=== PATIENT | male | born 1970 | race Caucasian/White ===

== ENCOUNTER 2020-05-01 17:03 | Emergency (ER) | payer OTHER ==
--- OUTSIDE RECORDS SUMMARY | 2020-05-01 17:04 | XMS REPORT | Continuity of Care Document ---
:1970 Author Organization [facility] t Address [address] [place] [address] Dr. Guzman [address] [place] [id number] Care Team Providers Name Role Phone Unavailable Unavailable Unavailable Problems This patient has no known problems. Allergies, Adverse Reactions, Alerts This patient has no known allergies or adverse reactions. Medications This patient has no known medications. Procedures This patient has no known procedures. Results This patient has no known results.
[2020-05-01] MEDS ORDERED: IBUPROFEN 200 MG TAB PO ONE (18:18)
[2020-05-01] MEDS ORDERED: IBUPROFEN 400 MG TAB ONE (18:19)
--- NOTE | 2020-05-01 18:28 | ER ---
Nurse's Notes [facility] Name: North Nguyen Age: 49 yrs Sex: Male : 1970 Arrival Date: 05/01/2020 Time: 17:04 Bed 16 Private MD: Diagnosis: Pain in right shoulder Presentation: 05/01 17:22 Chief complaint: Parent and/or Guardian states: Pt was walking, tripped and fell onto a ks7 brick wall with uneven surface. c/o R shoulder pain, unable to lift arm up. NO LOC, denies dizziness. Care prior to arrival: None. Mechanism of Injury: Fall tripped and fell onto a brick wall. Trauma event details: Injury occurred: at home. 17:22 Acuity: DIMPLE 4 ks7 17:22 Method Of Arrival: Ambulatory ks7 Trauma Activation: Not Applicable Physician: ED Physician; Name: ; Notified At: ; Arrived At: Physician: General Surgeon; Name: ; Notified At: ; Arrived At: Physician: Radiology; Name: ; Notified At: ; Arrived At: Physician: Respiratory; Name: ; Notified At: ; Arrived At: Physician: Lab; Name: ; Notified At: ; Arrived At: Historical: - Allergies: 18:19 PENICILLINS; jr10 18:19 Bextra; jr10 18:19 NALEX; jr10 18:19 CYCLOBENZAPRINE; jr10 18:19 Erythromycin; jr10 18:19 Darvocet-N 100; jr10 18:19 Morphine; jr10 18:19 Hydrocodone-Acetaminophen; jr10 18:19 Cephalexin; jr10 18:19 Doxycycline; jr10 18:19 silver sulfadiazine; jr10 18:19 MUPIROCIN; jr10 18:19 Zofran ODT; jr10 - PMHx: 18:19 Anxiety; constipation; CRI DU CHAT SYNDROME; jr10 - Immunization history: Last tetanus immunization:. Screenin:22 Abuse screen: Denies threats or abuse. Denies injuries from another. Nutritional ks7 screening: No deficits noted. Tuberculosis screening: No symptoms or risk factors identified. Primary Survey: 17:22 NO uncontrolled hemorrhage observed. A: The patient is alert. Airway: patent. ks7 Breathing/Chest: Respiratory pattern: regular. Circulation: Pulses: palpable right radial artery and left radial artery. Skin color: pink, Skin temperature: warm, dry. Disability Alert. Exposure/Environment: There is no evidence of uncontrolled external bleeding. Reassessment Airway Airway Patent Breathing/Chest Respiratory pattern Regular Circulation Color [place] Temperature Warm Dry Disability Alert. Assessment: 17:22 General: Appears in no apparent distress. uncomfortable, Behavior is cooperative, ks7 anxious. Pain: Complains of pain in right shoulder Pain currently is 7 out of 10 on a pain scale. Quality of pain is described as aching, tender, Pain began 2 hours ago. Is continuous, Aggravated by increased activity. 18:14 Respiratory: Respiratory effort is even, unlabored, Respiratory pattern is regular, jr10 symmetrical. Musculoskeletal: No deficits noted. Circulation, motion, and sensation intact. no obvious deformity noted; small abrasion noted to right clavicle Tenderness present in right supraclavicular area. 19:07 Reassessment: sling placed to right arm, instructed family on use, return demonstration jr10 completed, understanding of instructions verbalized. Vital Signs: 17:22 BP 115 / 74; Pulse 95; Resp 18; Temp 98.4(O); Pulse Ox 98% on R/A; Weight 41.73 kg; ks7 Height 5 ft. 2 in. (157.48 cm); 19:07 BP 120 / 75; Pulse 92; Resp 18; Pulse Ox 98% on R/A; Pain 0/10; jr10 17:22 Body Mass Index 16.83 (41.73 kg, 157.48 cm) ks7 Mary Coma Score: 17:22 Eye Response: spontaneous(4). Verbal Response: oriented(5). Motor Response: obeys ks7 commands(6). Total: 15. Trauma Score (Adult): 17:22 Eye Response: spontaneous(1); Verbal Response: oriented(1); Motor Response: obeys ks7 commands(2); Systolic BP: > 89 mm Hg(4); Respiratory Rate: 10 to 29 per min(4); Mary Score: 15; Trauma Score: 12 ED Course: 17:04 Patient arrived in ED. ag5 17:22 Patient has correct armband on for positive identification. ks7 17:22 Patient maintains SpO2 saturation greater than 95% on room air. ks7 17:24 Triage completed. ks7 17:31 Sancho Hassan PA is PHCP. cp 17:31 Amando Smith MD is Attending Physician. cp 17:46 Aishwarya Lal, RN is Primary Nurse. jr10 18:10 XRAY Shoulder RIGHT 2 view In Process Unspecified. EDMS 18:15 Bed in low position. Call light in reach. Side rails up X 1. Adult w/ patient. jr10 Administered Medications: 18:13 Drug: Ibuprofen 600 mg Route: PO; jr10 19:07 Follow up: Response: No adverse reaction jr10 Intake: 17:22 PO: 0ml; Total: 0ml. ks7 Output: 17:22 Urine: 0ml; Total: 0ml. ks7 Outcome: 18:28 Discharge ordered by MD. cp 19:08 Discharged to home ambulatory, with family, mother jr10 19:08 Condition: good 19:08 Discharge instructions given to patient, family, mother Instructed on discharge instructions, follow up and referral plans. Demonstrated understanding of instructions, follow-up care, medications, Prescriptions given X 1. 19:08 Patient left the ED. jr10 Signatures: Dispatcher [employer] EDFL Sancho Hassan PA PA cp Gaskin, Ajare ag5 Jeri Smith, RN RN ks7 Aishwarya Lal, RN RN jr10
--- NOTE | 2020-05-01 18:28 | EDPHYS ---
Physician Documentation [facility] Name: North Nguyen Age: 49 yrs Sex: Male : 1970 Arrival Date: 05/01/2020 Time: 17:04 Bed 16 Private MD: ED Physician Amando Smith HPI: 05/01 17:35 This 49 yrs old Male presents to ER via Ambulatory with complaints of Fall cp Injury, Shoulder Injury. 17:35 Details of fall: The patient fell from an upright position, while walking. cp 17:35 Onset: The symptoms/episode began/occurred today. Associated injuries: The patient cp sustained right shoulder, painful injury. Mother reports patient stumbled and struck right shoulder against brick wall. Historical: - Allergies: 18:19 PENICILLINS; jr10 18:19 Bextra; jr10 18:19 NALEX; jr10 18:19 CYCLOBENZAPRINE; jr10 18:19 Erythromycin; jr10 18:19 Darvocet-N 100; jr10 18:19 Morphine; jr10 18:19 Hydrocodone-Acetaminophen; jr10 18:19 Cephalexin; jr10 18:19 Doxycycline; jr10 18:19 silver sulfadiazine; jr10 18:19 MUPIROCIN; jr10 18:19 Zofran ODT; jr10 - PMHx: 18:19 Anxiety; constipation; CRI DU CHAT SYNDROME; jr10 - Immunization history: Last tetanus immunization:. ROS: 17:40 Respiratory: Negative for cough, shortness of breath, wheezing. cp 17:40 MS/extremity: Positive for pain, of the right shoulder, Negative for deformity. 17:40 All other systems are negative. Exam: 17:45 Constitutional: The patient appears in no acute distress, alert, awake, non-toxic, well cp developed, well nourished. 17:45 Head/Face: Normocephalic, atraumatic. cp 17:45 Neck: C-spine: vertebral tenderness, is not appreciated, crepitus, is not appreciated, ROM/movement: is normal, is supple, without pain, no range of motions limitations. 17:45 Chest/axilla: Inspection: normal, Palpation: crepitus, is not appreciated, tenderness, is not appreciated. 17:45 Cardiovascular: Rate: normal, Rhythm: regular, Heart sounds: murmur, Edema: is not appreciated, JVD: is not appreciated. 17:45 Respiratory: the patient does not display signs of respiratory distress, Respirations: normal, no use of accessory muscles, no retractions. 17:45 Abdomen/GI: Exam negative for discomfort, distension, guarding, Inspection: abdomen appears normal. 17:45 Back: vertebral tenderness, is not appreciated. 17:45 Musculoskeletal/extremity: Perfusion: the extremity is normally perfused throughout, Sensation intact. Joints: All joints are normal except the left shoulder displays painful range of motion, tenderness. Vital Signs: 17:22 BP 115 / 74; Pulse 95; Resp 18; Temp 98.4(O); Pulse Ox 98% on R/A; Weight 41.73 kg; ks7 Height 5 ft. 2 in. (157.48 cm); 19:07 BP 120 / 75; Pulse 92; Resp 18; Pulse Ox 98% on R/A; Pain 0/10; jr10 17:22 Body Mass Index 16.83 (41.73 kg, 157.48 cm) ks7 Mary Coma Score: 17:22 Eye Response: spontaneous(4). Verbal Response: oriented(5). Motor Response: obeys ks7 commands(6). Total: 15. Trauma Score (Adult): 17:22 Eye Response: spontaneous(1); Verbal Response: oriented(1); Motor Response: obeys ks7 commands(2); Systolic BP: > 89 mm Hg(4); Respiratory Rate: 10 to 29 per min(4); [place] Score: 15; Trauma Score: 12 MDM: 17:32 Patient medically screened. cp 18:27 Data reviewed: vital signs, nurses notes, radiologic studies, plain films. cp 18:27 Differential diagnosis: contusion, fracture, dislocation. Test interpretation: by ED cp physician or midlevel provider: xrays of right shoulder negative for fracture and/or dislocation. Counseling: I had a detailed discussion with the patient and/or guardian regarding: the historical points, exam findings, and any diagnostic results supporting the discharge/admit diagnosis, radiology results, to return to the emergency department if symptoms worsen or persist or if there are any questions or concerns that arise at home. Response to treatment: the patient's symptoms have mildly improved after treatment, and as a result, I will discharge patient. 05/01 17:35 Order name: XRAY Shoulder RIGHT 2 view; Complete Time: 18:52 cp 05/01 18:52 Interpretation: Reviewed. cp 05/01 18:26 Order name: Christal; Complete Time: 19:07 cp Administered Medications: 18:13 Drug: Ibuprofen 600 mg Route: PO; jr10 19:07 Follow up: Response: No adverse reaction jr10 Disposition: 19:00 Chart complete. cp 05/02 07:29 Co-signature as Attending Physician, Amando Smith MD I agree with the assessment and kdr plan of care. Disposition: 05/01/20 18:28 Discharged to Home. Impression: Pain in right shoulder. - Condition is Stable. - Discharge Instructions: Shoulder Pain, Shoulder Range of Motion Exercises. - Prescriptions for Ibuprofen 600 mg Oral Tablet - take 1 tablet by ORAL route every 8 hours As needed take with food; 30 tablet. - Medication Reconciliation Form, Thank You Letter, Antibiotic Education, Prescription Opioid Use form. - Follow up: Private Physician; When: 2 - 3 days; Reason: Worsening of condition. - Problem is new. - Symptoms have improved. Signatures: Dispatcher [employer] EDAmando Fournier MD MD kdr Sancho Hassan PA PA cp Jeri Smith, RN RN ks7 Aishwarya Lal RN RN jr10 Corrections: (The following items were deleted from the chart) 05/01 19:08 18:28 05/01/2020 18:28 Discharged to Home. Impression: Pain in right shoulder. jr10 Condition is Stable. Forms are Medication Reconciliation Form, Thank You Letter, Antibiotic Education, Prescription Opioid Use. Follow up: Private Physician; When: 2 - 3 days; Reason: Worsening of condition. Problem is new. Symptoms have improved. cp 05/02 02:42 02:41 MS/extremity: Positive for pain, of the right shoulder, Negative for deformity, cpcp 02:42 02:41 Respiratory: Negative for cough, shortness of breath, wheezing, cp cp 02:42 02:41 All other systems are negative, cp cp
--- NOTE | 2020-05-01 18:39 | RAD REPORT ---
EXAM DESCRIPTION: RAD - Shoulder Right 2 View - 05/01/2020 6:10 pm CLINICAL HISTORY: Right shoulder pain FINDINGS: No fracture or dislocation is seen. Small calcific densities adjacent to the humeral head may indicate calcific tendinitis
[2020-05-01 19:13] VITALS: TEMP 98.4; O2SAT 98
[2020-05-01 19:14] VITALS: BP 120/75
== END 2020-05-01 19:08 | disposition home or self-care (01) ==
LOC: ER 17:03
DX: M25.511 Pain in right shoulder (principal); W19.XXXA Unspecified fall, initial encounter; Y93.9 Activity, unspecified; Y92.9 Unspecified place or not applicable; Z88.0 Allergy status to penicillin; Z88.1 Allergy status to other antibiotic agents; Z88.5 Allergy status to narcotic agent; Z88.8 Allergy status to other drugs, medicaments and biological substances
CPT/HCPCS: 99284

== ENCOUNTER 2021-04-28 11:55 | Emergency (ER) | payer OTHER ==
--- OUTSIDE RECORDS SUMMARY | 2021-04-28 11:58 | XMS REPORT | Continuity of Care Document ---
:1970 Author Organization [facility] t Address [address] [place] [address] Dr. Guzman [address] [place] [address] Care Team Providers Name Role Phone Huang BUTLER Attending Clinician Problems This patient has no known problems. Allergies, Adverse Reactions, Alerts This patient has no known allergies or adverse reactions. Medications This patient has no known medications. Procedures This patient has no known procedures. Encounters Start End Encounter Admission Attending Care Care Encounter Source Date/Time Date/Time Type Type Clinicians Facility Department ID 2021-04-07 2021-04-07 Office GAY [facility]as [id number] 09:09:48 15:18:25 Visit Juan J MCDUFFIE [id number] NURY [id number] [place] [id number] [facility] Results This patient has no known results.
[2021-04-28 14:01] LABS: Absolute Lymphocytes (CBC) 0.9 K/uL (0.7-4.9); Basophils % 0.6 % (0-1.3); Hematocrit 42.4 % (39.6-49.0); Lymphocytes % 20.5 % (15.3-44.8); RBC Red Blood Cell Count 4.58 M/uL (4.33-5.43)
[2021-04-28 14:29] LABS: ALT/SGPT 30 U/L (12-78); AST/SGOT 21 U/L (15-37); Albumin 3.7 g/dL (3.4-5.0); Alkaline Phosphatase 59 U/L (45-117); BUN Blood Urea Nitrogen 29 mg/dL (7-18); Bicarbonate 31 mmol/L (21-32); Bilirubin Total 0.4 mg/dL (0.2-1.0); Glucose Level 104 mg/dL (74-106); Potassium 4.3 mmol/L (3.5-5.1); Protein, Total 7.6 g/dL (6.4-8.2); Sodium Level 141 mmol/L (136-145)
--- NOTE | 2021-04-28 14:39 | ER ---
Nurse's Notes [facility] Name: North Nguyen Age: 50 yrs Sex: Male : 1970 Arrival Date: 04/28/2021 Time: 12:02 Bed DIS2 Private MD: Diagnosis: Dehydration;Acute stress reaction Presentation: 04/28 12:23 Onset of symptoms was April 28, 2021. iw 12:23 Acuity: DIMPLE 3 iw Historical: - Allergies: 12:17 Bextra; iw 12:17 Cephalexin; iw 12:17 Cyclobenzaprine; iw 12:17 Darvocet-N 100; iw 12:17 Doxycycline; iw 12:17 Erythromycin; iw 12:17 Hydrocodone-Acetaminophen; iw 12:17 Morphine; iw 12:17 mupirocin; iw 12:17 NALEX; iw 12:17 PENICILLINS; iw 12:17 silver sulfadiazine; iw 12:17 Zofran ODT; iw - PMHx: 12:17 Anxiety; constipation; CRI DU CHAT SYNDROME; iw ED Course: 12:02 Patient arrived in ED. iw 12:05 Amrik Gupta NP is PHCP. pm1 12:05 Erick Souza MD is Attending Physician. pm1 12:23 Triage completed. iw 13:47 Urvashi Mauricio RN is Primary Nurse. iw Administered Medications: No medications were administered Outcome: 14:39 Discharge ordered by . pm1 15:12 Patient left the ED. iw Signatures: Urvashi Mauricio RN RN iw Amrik Gupta NP UTILITY SALES REPRESENTATIVE pm1
--- NOTE | 2021-04-28 14:40 | EDPHYS ---
Physician Documentation [facility] Name: North Nguyen Age: 50 yrs Sex: Male : 1970 Arrival Date: 04/28/2021 Time: 12:02 Bed DIS2 Private MD: ED Physician Erick Souza HPI: 04/28 12:51 This 50 yrs old Male presents to ER via Unassigned with complaints of Shaking.pm1 12:51 Generalized shaking per mother. Onset: The symptoms/episode began/occurred today. pm1 Severity of symptoms: in the emergency department the symptoms have resolved Patient is currently at his baseline per mother. Patient was shopping with his mother. He went to the restroom on his own while his mother was shopping. And then he was found by his mother at the pharmacy department of [facility] with complaints of generalized shaking. Patient did not lose consciousness or fall. According to his mother both her and the patient has been trying to address their elevated blood sugars with dietary measures. Patient has not been compliant with his diet per mother. His blood sugar was 105 this morning and it was rechecked prior to arrival by EMS and she does not know the level. Historical: - Allergies: 12:17 Bextra; iw 12:17 Cephalexin; iw 12:17 Cyclobenzaprine; iw 12:17 Darvocet-N 100; iw 12:17 Doxycycline; iw 12:17 Erythromycin; iw 12:17 Hydrocodone-Acetaminophen; iw 12:17 Morphine; iw 12:17 mupirocin; iw 12:17 NALEX; iw 12:17 PENICILLINS; iw 12:17 silver sulfadiazine; iw 12:17 Zofran ODT; iw - PMHx: 12:17 Anxiety; constipation; CRI DU CHAT SYNDROME; iw ROS: 12:51 Constitutional: Negative for fever, chills, and weight loss, Cardiovascular: Negative pm1 for chest pain, palpitations, and edema, Respiratory: Negative for shortness of breath, cough, wheezing, and pleuritic chest pain, Abdomen/GI: Negative for abdominal pain, nausea, vomiting, diarrhea, and constipation, Back: Negative for injury and pain, MS/Extremity: Negative for injury and deformity, Skin: Negative for injury, rash, and discoloration. 12:51 Neuro: Positive for generalized shaking, Negative for altered mental status, headache, numbness, syncope, near syncope, tingling, weakness. 12:51 All other systems are negative. Exam: 12:51 Constitutional: This is a well developed, well nourished patient who is awake, alert, pm1 and in no acute distress. Head/Face: Normocephalic, atraumatic. 12:51 Back: No spinal tenderness. No costovertebral tenderness. Full range of motion. Skin: Warm, dry with normal turgor. Normal color with no rashes, no lesions, and no evidence of cellulitis. MS/ Extremity: Pulses equal, no cyanosis. Neurovascular intact. Full, normal range of motion. 12:51 Cardiovascular: Exam negative for acute changes, Rate: normal, Rhythm: regular, Pulses: no pulse deficits are appreciated. 12:51 Respiratory: Exam negative for acute changes, respiratory distress, shortness of breath, Breath sounds: are clear throughout. 12:51 Abdomen/GI: Exam negative for acute changes, Palpation: abdomen is soft and non-tender, in all quadrants. 12:51 Neuro: Exam negative for acute changes, focal neuro deficits, motor deficits, pm1 confusion, weakness, seizure activity, is not displayed by the patient. MDM: 12:14 Patient medically screened. pm1 14:36 ED course: Patient without IV, blood drawn with IV butterfly. Offered IV fluids for pm1 rehydration. Mother refused said she will feed him and give him lots to drink at home. She was relieved to find his blood sugar was at normal limits. She believes that he likely had anxiety reaction with getting lost going to the bathroom at [facility] since they are currently remodeling the store. 14:36 Counseling: I had a detailed discussion with the patient and/or guardian regarding: the pm1 historical points, exam findings, and any diagnostic results supporting the discharge/admit diagnosis, lab results, the need for outpatient follow up, a family practitioner, to return to the emergency department if symptoms worsen or persist or if there are any questions or concerns that arise at home. 14:36 Data reviewed: nurses notes. pm04/28 12:42 Order name: CBC with Diff pm04/28 12:42 Order name: CMP pm04/28 12:42 Order name: IV Saline Lock pm04/28 12:43 Order name: EKG; Complete Time: 12:43 pm1 04/28 12:43 Order name: CBC with Automated Diff; Complete Time: 14:10 EDMS 04/28 12:43 Order name: Comprehensive Metabolic Panel; Complete Time: 14:31 EDMS 04/28 12:42 Order name: Urine Dipstick-Ancillary (obtain specimen) pm1 04/28 12:43 Order name: EKG - Nurse/Tech pm1 Administered Medications: No medications were administered Disposition: 15:54 Co-signature as Attending Physician, Erick Souza MD. rn Disposition Summary: 04/28/21 14:39 Discharge Ordered Location: Home pm1 Problem: new pm1 Symptoms: have improved pm1 Condition: Stable pm1 Diagnosis - Dehydration pm1 - Acute stress reaction pm1 Followup: pm1 - With: Emergency Department - When: As needed - Reason: Worsening of condition Followup: pm1 - With: Private Physician - When: 2 - 3 days - Reason: Recheck today's complaints, Continuance of care, Re-evaluation by your physician Discharge Instructions: - Discharge Summary Sheet pm1 - Dehydration, Adult pm1 - Stress, Adult pm1 - Rehydration, Adult pm1 Forms: - Medication Reconciliation Form pm1 - Thank You Letter pm1 - Antibiotic Education pm1 - Prescription Opioid Use pm1 Signatures: Dispatcher [employer] Urvashi Jimenez RN RN iw Nieto, Roman, MD MD rn Marinas, Patrick, ANANDA SPECIAL MAKEUP FX ARTIST INSTRUCTOR pm1
== END 2021-04-28 15:12 | disposition home or self-care (01) ==
LOC: ER 11:55
DX: E86.0 Dehydration (principal); F43.0 Acute stress reaction; Z88.0 Allergy status to penicillin; Z88.1 Allergy status to other antibiotic agents; Z88.5 Allergy status to narcotic agent; Z88.6 Allergy status to analgesic agent; Z88.8 Allergy status to other drugs, medicaments and biological substances
CPT/HCPCS: 36415; 80053; 85025; 99281

== ENCOUNTER 2024-07-21 06:59 | Day surgery (SDC) | payer OTHER ==
[2024-07-20 14:35] LABS: Absolute Eosinophils 0.2 K/uL (0-0.5); Absolute Lymphocytes (CBC) 1.1 K/uL (0.7-4.9); Absolute Monocytes 0.4 K/uL (0.1-1.3); Absolute Neutrophil 2.5 K/uL (1.8-8.0); Basophils % 0.8 % (0-1.3); Eosinophils % 4.3 % (0-4.4); Hematocrit 40.8 % (39.6-49.0); Lymphocytes % 26.6 % (15.3-44.8); MCHC 34.2 g/dL (32.0-36.0); MCV 90.5 fL (80-100); MPV 7.3 fL (7.6-11.3); Monocytes % 9.1 % (3.3-12.3); Neutrophils % 59.2 % (41.7-73.7); Nucleated Red Blood Cells % 0.2 % (0-0); Platelets 208 thou/uL (152-406); RBC Red Blood Cell Count 4.51 M/uL (4.33-5.43); Red Cell Distribution Width 12.4 % (12.1-15.2)
[2024-07-21] MEDS ORDERED: LIDOCAINE 1% MPF 5 ML VIAL ONE (07:27)
[2024-07-21] MEDS ORDERED: propofoL 200 MG/20 ML VIAL IV ONE (07:27)
[2024-07-21] MEDS: Ringers Lactate 1,000 ML IV ONE (07:56)
[2024-07-21 09:20] VITALS: BP 135/80; TEMP 97.1; O2SAT 99
--- NOTE | 2024-07-24 12:23 | EKG ---
Test Date: 2024-07-20 Test Time: 14:24:42 Handle Machine Operator: LOREE MEASUREMENT RESULTS: Intervals: Rate: 69 NV: 164 QRSD: 114 QT: 378 QTc: 405 Parrott: P: 46 NV: 164 QRS: 68 T: 37 INTERPRETIVE STATEMENTS: Normal sinus rhythm Incomplete right bundle branch block Borderline ECG No previous ECG available for comparison Electronically Signed On 07-24-24 12:17:37 COSMETIC DENTIST by Be Jenkins
== END 2024-07-21 09:04 | disposition home or self-care (01) ==
LOC: OR 06:59
PROVIDERS: ATTEND Surgery
PROC: 0DJD8ZZ Inspection of Lower Intestinal Tract, Via Natural or Artificial Opening Endoscopic (ICD-10-PCS; principal; 2024-07-21 08:00)
DX: Z12.11 Encounter for screening for malignant neoplasm of colon (principal); Z91.148 Patient's other noncompliance with medication regimen for other reason
CPT/HCPCS: 93005; 85025; 80048; 36415; 45378; J2704; J2003; J7120

== ENCOUNTER 2025-06-09 01:34 | Emergency (ER) | payer OTHER ==
[2025-06-09 02:38] LABS: Absolute Lymphocytes (CBC) 0.8 K/uL (0.7-4.9); Hematocrit 40.8 % (39.6-49.0); Hemoglobin 14.0 g/dL (13.6-17.9); MCH 30.4 pg (27.0-35.0); MCHC 34.3 g/dL (32.0-36.0); MCV 88.5 fL (80-100); MPV 8.0 fL (7.6-11.3); Nucleated RBC Absolute Count 0.0 (0-0); Nucleated Red Blood Cells % 0.0 % (0-0); RBC Red Blood Cell Count 4.61 M/uL (4.33-5.43); White Blood Count 7.30 thou/uL (4.3-10.9)
[2025-06-09 03:02] LABS: ALT/SGPT 34 U/L (16-61); AST/SGOT 18 U/L (15-37); Albumin 3.4 g/dL (3.4-5.0); Albumin/Globulin Ratio 0.9 (1.1-1.8); Alkaline Phosphatase 81 U/L (45-117); Anion Gap 7.6 mEq/L (5.0-15.0); BUN Blood Urea Nitrogen 13 mg/dL (7-18); Globulin 4.0 g/dL (2.3-3.5); Glucose Level 153 mg/dL (74-106); Lipase 23 U/L (13-75); Potassium 3.6 mEq/L (3.5-5.1)
[2025-06-09 03:04] LABS: Bilirubin Indirect, Calculated 0.3 mg/dL (0.2-0.8); Troponin High Sensitivity < 3.0 pg/mL (<58.9)
[2025-06-09] MEDS ORDERED: HYDROMORPHONE HCL 0.5 MG/0.5 ML INJ ONE (03:06)
--- NOTE | 2025-06-09 04:24 | RAD REPORT ---
EXAM: XR Chest, 1 View CLINICAL HISTORY: The patient is 54 years old and is Male; CHEST PAIN TECHNIQUE: Frontal view of the chest. COMPARISON: No relevant prior studies available. FINDINGS: Lungs: Prominent interstitial markings. No consolidation. Pleural space: Unremarkable. No pneumothorax. Heart: Unremarkable. Mediastinum: Unremarkable. Normal mediastinal contour. Bones/joints: No acute findings. IMPRESSION: Prominent interstitial markings. No consolidation. Electronically signed by: Camilo Adams MD 06/09/2025 04:13 AM CDT 8 Due to temporary technical issues with the PACS/ZhongSou reporting system, reports are being eliceo d by the in-house radiologist without review as a courtesy to ensure prompt reporting. The interpreting radiologist is fully responsible for the content of the report. Transcribed Date/Time: 06/09/2025 4:23 AM
--- NOTE | 2025-06-09 06:09 | EDPHYS ---
Physician Documentation [facility] Name: North Nguyen Age: 54 yrs Sex: Male : 1970 Arrival Date: 06/09/2025 Time: 01:34 Bed 17 Private MD: ED Physician Artis Lopes HPI: 06/09 03:13 This 54 yrs old Unknown Male presents to ER via Wheelchair with complaints of Chest tt7 Pain. 03:13 The patient or guardian reports chest pain that is located primarily in the epigastric tt7 area. Onset: 2 hour(s) ago. The pain does not radiate. Associated signs and symptoms: The patient has no apparent associated signs or symptoms. The chest pain is described as burning. Duration: The patient or guardian reports a single episode, that is still ongoing, and unchanged. Modifying factors: The symptoms are alleviated by nothing. the symptoms are aggravated by nothing. The patient has not experienced similar symptoms in the past. Historical: - Allergies: 01:49 Cyclobenzaprine; ha1 01:49 Cephalexin; ha1 01:49 Bextra; ha1 01:49 Darvocet-N 100; ha1 01:49 Doxycycline; ha1 01:49 Erythromycin; ha1 01:49 Hydrocodone-Acetaminophen; ha1 01:49 Morphine; ha1 01:49 mupirocin; ha1 01:49 NALEX; ha1 01:49 PENICILLINS; ha1 01:49 silver sulfadiazine; ha1 01:49 Zofran ODT; ha1 01:49 Levofloxacin; ha1 01:49 Hydrocortisone; ha1 01:49 Mucinex; ha1 01:49 Chocolate; ha1 - PMHx: 01:51 Anxiety; constipation; CRI DU CHAT SYNDROME; ha1 - Immunization history:: Adult Immunizations up to date. - Infectious Disease History:: Denies. - Social history:: Smoking status: Patient denies any tobacco usage or history of. ROS: 03:14 Constitutional: negative for fever. Respiratory: negative for shortness of breath. tt7 Abdomen/GI: negative for abdominal pain, nausea, vomiting, diarrhea. Skin: negative for rash. Neuro: negative for focal weakness. 03:14 Cardiovascular: Positive for chest pain, Negative for palpitations, Exam: 03:14 Constitutional: vital signs reviewed, well appearing. Head/Face: normocephalic, tt7 atraumatic. Eyes: no conjunctival injection, anicteric sclerae. ENT: mucus membranes moist. Neck: trachea midline, no JVD, no meningismus. Chest/axilla: normal chest wall appearance and motion, nontender, no crepitus. Cardiovascular: regular rate and rhythm, no murmurs, no rubs, no lower extremity edema. Respiratory: normal respiratory effort, no accessory muscle use, lungs CTAB. Abdomen/GI: soft, nondistended, nontender, no guarding or rebound, negative Savage's sign, no McBurney point tenderness. Back: normal ROM. Skin: warm, dry, intact, normal turgor, normal color, no rash. MS/ Extremity: normal ROM of extremities, no gross deformities. Neuro: alert and oriented with appropriate mental status, normal speech, follows commands, no focal neurologic deficits. Psych: appropriate mood and affect. Vital Signs: 01:35 BP 131 / 90; Pulse 103; Resp 19 S; Temp 97.6(T); Pulse Ox 97% on R/A; Weight 46.72 kg; ha1 Height 5 ft. 6 in. ; 01:50 BP 132 / 96; Pulse 99; Resp 15; Pulse Ox 98% on R/A; tb4 02:50 BP 122 / 83; Pulse 96; Resp 16; Pulse Ox 98% on R/A; tb4 03:57 BP 111 / 68; Pulse 91; Resp 16; Pulse Ox 97% on R/A; tb4 05:00 BP 114 / 72; Pulse 86; Resp 20; Pulse Ox 99% on R/A; tb4 05:55 BP 124 / 73; Pulse 69; Resp 17; Pulse Ox 100% on R/A; tb4 06:23 BP 109 / 75; Pulse 86; Resp 18; Pulse Ox 98% on R/A; Pain 0/10; tb4 01:35 Body Mass Index 16.62 (46.72 kg, 167.64 cm) ha1 06:23 Pain Scale: Adult tb4 MDM: 01:59 Medical Screening Exam initiated tt7 03:11 ED course: Well-appearing 54-year-old male presents with chest pain, vital signs are tt7 stable, physical exam is reassuring, I have low suspicion for ACS, suspect GI cause as the pain is more burning in the epigastric region, has history of GERD, standard cardiac evaluation ordered, I have reviewed and independently interpreted the patient's EKG performed on 06/09/2025 at 0144. On my interpretation, normal sinus rhythm, ventricular rate 98 bpm, incomplete right bundle branch block, T wave inversion in lead III/V5/V6, no STEMI. 03:14 Differential diagnosis: abnormal EKG, acute myocardial infarction, anxiety, chest wall tt7 pain, costochondritis, gastritis, gastroesophageal reflux disease (GERD), pancreatitis, pneumonia, pneumothorax. 04:31 Data reviewed: vital signs, nurses notes, lab test result(s), amylase and lipase, tt7 cardiac enzymes, CBC, electrolytes, hepatic panel, EKG, radiologic studies, plain films. Historians other than the Patient: Parent: . Care significantly affected by the following chronic conditions: cri du chat syndrome. Counseling: I had a detailed discussion with the patient and/or guardian regarding the historical points, exam findings, and any diagnostic results supporting the discharge/admit diagnosis, lab results, radiology results, the need for outpatient follow up, to return to the emergency department if symptoms worsen or persist or if there are any questions or concerns that arise at home. ED course: I have reviewed and independently interpreted the patient's chest x-ray. On my interpretation, chest x-ray demonstrates no radiographic evidence of acute cardiopulmonary disease. Laboratory studies are reassuring, EKG without findings concerning of acute ischemia, troponin negative, patient has a low risk heart score of 1, 2-hour delta troponin ordered and pending. 06:11 ED course: Repeat troponin negative, patient still resting comfortably with chest pain tt7 totally resolved, emergency department evaluation is reassuring. I do not suspect life-threatening process. Patient is stable and not in need of emergent medical intervention. I had a detailed discussion with the patient and caregiver regarding the historical points, exam findings, emergency department evaluation, diagnostic results, and the discharge diagnosis. I discussed outpatient management of the patient's condition. I discussed the need for outpatient follow-up with primary care and relevant specialist. I discussed return precautions including the need to return to the ED if symptoms do not improve, worsen, or if there are any questions or concerns that arise at home. The patient was discharged in stable condition. 06/09 02:05 Order name: Basic Metabolic Panel; Complete Time: 03:10 tt7 06/09 02:05 Order name: CBC with Diff; Complete Time: 03:10 06/09 02:05 Order name: LFT's; Complete Time: 03:10 06/09 02:05 Order name: Troponin HS; Complete Time: 03:10 06/09 02:05 Order name: Lipase; Complete Time: 03:10 06/09 04:35 Order name: Troponin High Sensitivity; Complete Time: 06:08 06/09 02:05 Order name: XRAY Chest (1 view) 06/09 02:05 Order name: EKG; Complete Time: 02:05 06/09 02:05 Order name: Cardiac monitoring; Complete Time: 03:16 06/09 02:05 Order name: EKG - Nurse/Tech; Complete Time: 02:05 06/09 02:05 Order name: IV Saline Lock; Complete Time: 02:05 06/09 02:05 Order name: Labs collected and sent; Complete Time: 02:05 06/09 02:05 Order name: O2 Per Protocol; Complete Time: 02:05 06/09 02:05 Order name: O2 Sat Monitoring; Complete Time: 02:05 tt Administered Medications: 03:12 Drug: Droperidol IVP 0.625 mg IVP once Route: IVP; Site: right antecubital; tb4 03:57 Follow up: Response: No adverse reaction; RASS: Drowsy (-1) tb4 03:16 Drug: HYDROmorphone IVP 0.5 mg IVP once Route: IVP; Site: right antecubital; tb4 03:58 Follow up: Response: No adverse reaction; Pain is decreased; RASS: Drowsy (-1) tb4 Disposition: 06:11 Co-signature as Attending Physician, Artis Lopes DO. tt7 Disposition Summary: 06/09/25 06:09 Discharge Ordered Notes: Location: Home tt7 Problem: new tt7 Symptoms: are resolved tt7 Condition: Stable tt7 Diagnosis - Chest pain, unspecified tt7 Followup: tt7 - With: Emergency Department - When: As needed - Reason: Followup: tt7 - With: Private Physician - When: 1 - 2 days - Reason: Recheck today's complaints, Re-evaluation by your physician Discharge Instructions: - Discharge Summary Sheet tt7 - Nonspecific Chest Pain, Adult, [id number] tt7 Forms: - Medication Reconciliation Form tt7 - Antibiotic Education tt7 - Prescription Opioid Use tt7 - Patient Portal Instructions tt7 - Leadership Thank You Letter tt7 Signatures: Dispatcher [employer] EDMS Lucia Brown, RN RN ha1 Colette Schaffer RN RN tb4 Artis Lopes, DO tt7 Corrections: (The following items were deleted from the chart) 02:05 02:05 BASIC METABOLIC PANEL+C.LAB.BRZ ordered. EDMS EDMS 02:05 02:05 CBC+H.LAB.BRZ ordered. EDMS EDMS 02:05 02:05 HEPATIC FUNCTION+C.LAB.BRZ ordered. EDMS EDMS 02:05 02:05 Troponin High Sensitivity+C.LAB.BRZ ordered. EDMS EDMS 02:05 02:05 LIPASE+C.LAB.BRZ ordered. EDMS EDMS 04:35 03:11 ED course: I have reviewed and independently interpreted the patient's EKG tt7 performed on 06/09/2025 at 0144. On my interpretation, normal sinus rhythm, ventricular rate 98 bpm, incomplete right bundle branch block, T wave inversion in lead III/V5/V6, no STEMI. tt7 04:36 04:36 Troponin High Sensitivity+C.LAB.BRZ ordered. EDMS EDMS
--- NOTE | 2025-06-09 06:09 | ER ---
Nurse's Notes [facility] Name: North Nguyen Age: 54 yrs Sex: Male : 1970 Arrival Date: 06/09/2025 Time: 01:34 Bed 17 Private MD: Diagnosis: Chest pain, unspecified Presentation: 06/09 01:35 Chief complaint: Patient states: CHEST PAIN THAT STARTED 40 MINUTES AGO. ha1 01:35 Coronavirus screen: Client denies travel out of the [place] in the last 14 days. Ebola ha1 Screen: No symptoms or risks identified at this time. Initial Sepsis Screen: Does the patient meet any 2 criteria? No. Patient's initial sepsis screen is negative. Does the patient have a suspected source of infection? No. Patient's initial sepsis screen is negative. Risk Assessment: Do you want to hurt yourself or someone else? Patient reports no desire to harm self or others. Onset of symptoms was June 09, 2025. 01:35 Method Of Arrival: Wheelchair ha1 01:35 Acuity: DIMPLE 2 ha1 Triage Assessment: 01:51 General: Appears comfortable, Behavior is calm, cooperative. Pain: Complains of pain in ha1 chest. Neuro: Level of Consciousness is awake, alert, obeys commands, Oriented to person, place. Cardiovascular: Reports chest pain, Capillary refill < 3 seconds Patient's skin is warm and dry. Respiratory: Airway is patent Respiratory effort is even, unlabored, Respiratory pattern is regular, symmetrical. Historical: - Allergies: 01:49 Cyclobenzaprine; ha1 01:49 Cephalexin; ha1 01:49 Bextra; ha1 01:49 Darvocet-N 100; ha1 01:49 Doxycycline; ha1 01:49 Erythromycin; ha1 01:49 Hydrocodone-Acetaminophen; ha1 01:49 Morphine; ha1 01:49 mupirocin; ha1 01:49 NALEX; ha1 01:49 PENICILLINS; ha1 01:49 silver sulfadiazine; ha1 01:49 Zofran ODT; ha1 01:49 Levofloxacin; ha1 01:49 Hydrocortisone; ha1 01:49 Mucinex; ha1 01:49 Chocolate; ha1 - PMHx: 01:51 Anxiety; constipation; CRI DU CHAT SYNDROME; ha1 - Immunization history:: Adult Immunizations up to date. - Infectious Disease History:: Denies. - Social history:: Smoking status: Patient denies any tobacco usage or history of. Screenin:17 [facility] ED Fall Risk Assessment (Adult) History of falling in the last 3 months, tb4 including since admission No falls in past 3 months (0 pts) Confusion or Disorientation No (0 pts) Intoxicated or Sedated No (0 pts) Impaired Gait No (0 pts) Mobility Assist Device Used No (0 pt) Altered Elimination No (0 pt) Score/Fall Risk Level 0 - 2 = Low Risk Maintained a safe environment. Abuse screen: Denies threats or abuse. Denies injuries from another. Nutritional screening: No deficits noted. Tuberculosis screening: No symptoms or risk factors identified. Assessment: 03:17 General: Appears uncomfortable, Behavior is cooperative. Pain: Complains of pain in tb4 chest Pain does not radiate. Pain currently is 6 out of 10 on a pain scale. Quality of pain is described as sharp, Pain began suddenly, Is continuous, Alleviated by nothing. Neuro: Level of Consciousness is awake, alert, obeys commands, Oriented to person. Cardiovascular: Heart tones present Patient's skin is warm and dry. Respiratory: Airway is patent Respiratory effort is even, unlabored, Respiratory pattern is regular, symmetrical. GI: No signs and/or symptoms were reported involving the gastrointestinal system. : No signs and/or symptoms were reported regarding the genitourinary system. EENT: No signs and/or symptoms were reported regarding the EENT system. Derm: No signs and/or symptoms reported regarding the dermatologic system. Skin is intact, is healthy with good turgor, is thin, Skin is dry, Skin is normal, Skin temperature is warm. Musculoskeletal: No signs and/or symptoms reported regarding the musculoskeletal system. Circulation, motion, and sensation intact. Range of motion: intact in all extremities. 06:13 Reassessment: Patient is alert, oriented x 3, equal unlabored respirations, skin tb4 warm/dry/pink. Mother remains at bedside. Patient denies pain at this time. Patient states feeling better. Patient states symptoms have improved. Vital Signs: 01:35 BP 131 / 90; Pulse 103; Resp 19 S; Temp 97.6(T); Pulse Ox 97% on R/A; Weight 46.72 kg; ha1 Height 5 ft. 6 in. ; 01:50 BP 132 / 96; Pulse 99; Resp 15; Pulse Ox 98% on R/A; tb4 02:50 BP 122 / 83; Pulse 96; Resp 16; Pulse Ox 98% on R/A; tb4 03:57 BP 111 / 68; Pulse 91; Resp 16; Pulse Ox 97% on R/A; tb4 05:00 BP 114 / 72; Pulse 86; Resp 20; Pulse Ox 99% on R/A; tb4 05:55 BP 124 / 73; Pulse 69; Resp 17; Pulse Ox 100% on R/A; tb4 06:23 BP 109 / 75; Pulse 86; Resp 18; Pulse Ox 98% on R/A; Pain 0/10; tb4 01:35 Body Mass Index 16.62 (46.72 kg, 167.64 cm) ha1 06:23 Pain Scale: Adult tb4 ED Course: 01:35 Patient arrived in ED. mr 01:49 Triage completed. ha1 01:59 Artis Lopes DO is Attending Physician. tt7 02:06 Inserted saline lock: 20 gauge in right antecubital area, using aseptic technique. ha1 Blood collected. Flushed with 10 mL NS. 02:22 XRAY Chest (1 view) In Process Unspecified. EDMS 03:17 No provider procedures requiring assistance completed. Patient maintains SpO2 tb4 saturation greater than 95% on room air. 03:17 Patient has correct armband on for positive identification. Bed in low position. Call tb4 light in reach. Side rails up X 1. Adult w/ patient. Client placed on continuous cardiac and pulse oximetry monitoring. NIBP monitoring applied. potline monitor on. Door closed. Warm blanket given. 04:01 Arm band placed on right wrist. tb4 05:54 Troponin High Sensitivity Sent. tb4 06:23 IV discontinued, intact, bleeding controlled, No redness/swelling at site. Pressure tb4 dressing applied. 06:30 Provided Education on: Follow up with primary care. tb4 Administered Medications: 03:12 Drug: Droperidol IVP 0.625 mg IVP once Route: IVP; Site: right antecubital; tb4 03:57 Follow up: Response: No adverse reaction; RASS: Drowsy (-1) tb4 03:16 Drug: HYDROmorphone IVP 0.5 mg IVP once Route: IVP; Site: right antecubital; tb4 03:58 Follow up: Response: No adverse reaction; Pain is decreased; RASS: Drowsy (-1) tb4 Medication: 03:17 VIS not applicable for this client. tb4 Outcome: 06:09 Discharge ordered by . tt7 06:24 Discharged to home ambulatory, with family, tb4 06:24 Condition: stable 06:24 Discharge instructions given to patient, family, Instructed on discharge instructions, follow up and referral plans. Demonstrated understanding of instructions, follow-up care, 06:30 Patient left the ED. tb4 Signatures: Dispatcher [employer] EDMS Amina Lal, Reg Reg mr Lucia Brown, RN RN ha1 Colette Schaffer RN RN tb4 Artis Lopes, DO DO tt7
[2025-06-09 06:35] VITALS: TEMP 97.6
[2025-06-09 06:45] VITALS: BP 109/75; O2SAT 98
== END 2025-06-09 06:30 | disposition home or self-care (01) ==
LOC: ER 01:34
DX: R07.9 Chest pain, unspecified (principal); Z88.1 Allergy status to other antibiotic agents; Z88.5 Allergy status to narcotic agent; Z88.8 Allergy status to other drugs, medicaments and biological substances; Z88.0 Allergy status to penicillin; Z91.018 Allergy to other foods
CPT/HCPCS: 93005; 85025; 80048; 36415; 80076; 84484 ×2; 83690; 71045; 96375; 96374; 99285; J1171; J1790